=== PATIENT | male | born 1965 | race Caucasian/White ===

== ENCOUNTER 2021-08-18 15:07 | Inpatient (IN) ==
[2021-08-18] MEDS ORDERED: dilTIAZem HCl 5 MG/ML 5 ML VIAL IV ONE (15:24)
[2021-08-18] MEDS ORDERED: dilTIAZem HCl 5 MG/ML 5 ML VIAL IV STA (15:26)
[2021-08-18] MEDS ORDERED: STAT IV Infusion **Titration per Protocol STA (15:26)
[2021-08-18] MEDS ORDERED: SODIUM CHLORIDE 0.9% 1000ML 500 ML IV ONE (15:27)
--- NOTE | 2021-08-18 15:29 | Emergency Department Note ---
Impression & Plan Atrial fibrillation with rapid ventricular response, Palpitations ED Provider Note NAME: KATHIE [id number] KAITLIN AGE: 56 SEX: M : 1965 ARRIVES VIA: Ambulance INFORMANT: [Patient] ED PROVIDER(S): [Rodeirck Ojeda MD] CHIEF COMPLAINT: Cardiac assessment HISTORY OF PRESENT ILLNESS: The patient is a 56-year-old male states that about 2 and half hours ago, he noticed a fluttering in his chest. The patient was not short of breath, he was not having any chest pain. He went to get onto a stationary bicycle and his heart rate was in the 150s. He tried a second bike and the heart rate was the same. He had not even exercised. He was brought for evaluation. [facility] are guards at the bedside. The patient does not have any history of A. fib or a flutter or cardiac issues. He has never had a heart attack. He does carry history of depression. He states the only thing different recently was that he had a shingles vaccination earlier in the week. REVIEW OF SYSTEMS: See HPI for pertinent positives and negatives. A total of ten systems were reviewed and were otherwise negative. PMHx/PSHx: See Below SOCIAL HISTORY: See Below. PHYSICAL EXAM: GENERAL: Patient is in no acute distress. HEENT: No acute trauma, normocephalic atraumatic, mucous membranes moist, no nasal congestion, no scleral icterus. NECK: No stridor, no adenopathy, no meningismus, trachea is midline. LUNGS: Clear to auscultation bilaterally, no wheeze, no rhonchi, breath sounds equal. HEART: Tachycardic and irregular, no murmurs. ABDOMEN: Soft, nontender, bowel sounds positive, no peritonitis. EXTREMITIES: No cyanosis or edema, full range of motion of all the joints without pain or difficulty, no signs for acute trauma. NEUROLOGIC: Oriented x 3, no acute motor or sensory deficits, no focal weakness. SKIN: No rash, no jaundice, no diaphoresis. DIFFERENTIAL DIAGNOSIS: Cardiac ischemia, aortic dissection, pulmonary embolism, thyroid disorder, A. fib, a flutter, dysrhythmia, SVT, pneumothorax, pneumonia, pericarditis, myocarditis, esophageal rupture, GERD, cholecystitis, pancreatitis, muscu loskeletal, vaccine reaction, as well as other pathologies. EMERGENCY DEPARTMENT COURSE/PROCEDURES: ECG: Indication was tachycardia. The ECG shows atrial fibrillation with a rate of 155. LVH is present. There is some nonspecific ST change noted diffusely. There is no ST elevation, no PVCs. The QTc is 440. Continuous Cardiac Monitoring: An order was placed for continuous cardiac monitoring. The monitor shows a rate of 167 with atrial fibrillation. Critical Care Note: I have personally spent 41 minutes of critical care time in the direct management of this patient. This includes bedside care, interpre tation of diagnostic studies, and testing, discussion with consultants, patient, and family members, and other required patient management activities. This 41 minutes is in excess of all separately billable procedures. MEDICAL DECISION MAKING: There is no leukocytosis or concerning anemia. There is a normal platelet count. No renal failure or significant electrolyte abnormality. No concerning liver enzyme elevation. ECG shows a rapid atrial fibrillation without acute ischemia. Cardiac enzyme testing x1 is not consistent with acute cardiac injury. The patient appeared to be in a euthyroid state. Urinalysis did not show infection. Chest x-ray did not show pneumonia or CHF. COVID test returned negative. The patient presented in a rapid A. fib. He was aggressively managed. Patient was given a 15 mg bolus of IV diltiazem. He was then placed on a d iltiazem drip. The drip was titrated to help control the heart rate. He received IV saline, 500 cc. The patient's heart rate is better controlled, he is currently resting comfortably. The patient is in need of a hospital stay. He will require further cardiac work-up and further rate control. I did speak with the patient and family caseworker. The on-call hospitalist. Past Med/Surg History Medical History Anxiety Depression SIMONE on CPAP Social History Smoking Status: Former smoker Hx Alcohol Use: No Hx Substance Use: Yes (cocaine use in 1980s per patient report) Preferred Language: Kazakh Communication Ability: Effective Russian Teacher Required: No Beliefs That Will Affect Care: None Current Living Situation Comment: Prisoner Feels Safe at Home: Yes Safety Concerns: Feels Safe At This Time Allergies Allergies Allergy/AdvReac Type Severity Reaction Status Date / Time No Known Allergies Allergy Verified 08/18/21 20:11 Home Meds Home Medications Medication Instructions Recorded Confirmed buspirone 10 mg tablet 10 mg PO BID 08/18/21 08/18/21 buspirone 15 mg tablet 15 mg PO BID 08/18/21 08/18/21 capsaicin 0.075 % topical cream 1 applic TOPICAL BID 08/18/21 08/18/21 diclofenac sodium 50 mg 50 mg PO Q12H PRN 08/18/21 08/18/21 tablet,delayed release doxepin 75 mg capsule 75 mg PO HS 08/18/21 08/18/21 Results & Data (ED) Vital Signs Vital Signs - 24 hr 08/18/21 15:30 08/18/21 15:36 08/18/21 15:40 Temperature 36.6 C Temperature Source Oral Pulse Rate 149 H 161 H 106 H Pulse Rate from SpO2 Sensor 120 H 84 Respiratory Rate 13 21 10 L Respiratory Effort / Characteristics Non-Labored Spontaneous Respiratory Depth Normal Respiratory Pattern Regular Blood Pressure 140/100 Blood Pressure Mean 113 Blood Pressure Position Sitting Pulse Oximetry 96 99 99 Oxygen Delivery Method Room Air Room Air Room Air Sepsis Recent Fever Within 48 Hours No Sepsis New/Unexplained Change in Mental Status No Sepsis Action Taken by Nursing No Action Required 08/18/21 15:42 08/18/21 15:50 08/18/21 16:00 Temperature Temperature Source Pulse Rate 127 H 126 H Pulse Rate from SpO2 Sensor 101 H 96 H Respiratory Rate 15 14 Respiratory Effort / Characteristics Respiratory Depth Respiratory Pattern Blood Pressure 149/95 H Blood Pressure Mean 113 Blood Pressure Position Pulse Oximetry 98 99 Oxygen Delivery Method Room Air Room Air Room Air Sepsis Recent Fever Within 48 Hours Sepsis New/Unexplained Change in Mental Status Sepsis Action Taken by Nursing 08/18/21 16:10 08/18/21 16:15 08/18/21 16:20 Temperature Temperature Source Pulse Rate 106 H 127 H 140 H Pulse Rate from SpO2 Sensor 88 78 89 Respiratory Rate 9 L 17 13 Respiratory Effort / Characteristics Respiratory Depth Respiratory Pattern Blood Pressure 141/85 H Blood Pressure Mean 103 Blood Pressure Position Pulse Oximetry 98 99 96 Oxygen Delivery Method Room Air Room Air Room Air Sepsis Recent Fever Within 48 Hours Sepsis New/Unexplained Change in Mental Status Sepsis Action Taken by Nursing 08/18/21 16:30 08/18/21 16:40 08/18/21 16:45 Temperature Temperature Source Pulse Rate 115 H 126 H 101 H Pulse Rate from SpO2 Sensor 89 101 H 93 H Respiratory Rate 12 12 16 Respiratory Effort / Characteristics Respiratory Depth Respiratory Pattern Blood Pressure 142/94 H 155/114 H Blood Pressure Mean 110 127 Blood Pressure Position Pulse Oximetry 93 99 97 Oxygen Delivery Method Room Air Room Air Sepsis Recent Fever Within 48 Hours Sepsis New/Unexplained Change in Mental Status Sepsis Action Taken by Nursing 08/18/21 16:50 08/18/21 17:00 08/18/21 17:10 Temperature Temperature Source Pulse Rate 108 H 106 H 120 H Pulse Rate from SpO2 Sensor 74 84 78 Respiratory Rate 9 L 11 L 9 L Respiratory Effort / Characteristics Respiratory Depth Respiratory Pattern Blood Pressure Blood Pressure Mean Blood Pressure Position Pulse Oximetry 91 97 99 Oxygen Delivery Method Room Air Room Air Room Air Sepsis Recent Fever Within 48 Hours Sepsis New/Unexplained Change in Mental Status Sepsis Action Taken by Nursing 08/18/21 17:20 08/18/21 17:30 08/18/21 17:40 Temperature Temperature Source Pulse Rate 107 H 116 H 145 H Pulse Rate from SpO2 Sensor 80 79 88 Respiratory Rate 19 Respiratory Effort / Characteristics Respiratory Depth Respiratory Pattern Blood Pressure 155/94 H Blood Pressure Mean 114 Blood Pressure Position Pulse Oximetry 98 97 93 Oxygen Delivery Method Room Air Room Air Room Air Sepsis Recent Fever Within 48 Hours Sepsis New/Unexplained Change in Mental Status Sepsis Action Taken by Care Home Medications Current Medication List: was personally reviewed by me Laboratory Data Attestation: I reviewed the patient's lab results. Result diagrams: 08/18/21 15:25 08/18/21 15:25 Lab Results 08/18/21 08/18/21 08/18/21 Range/Units 14:05 15:25 15:25 WBC 7.83 (4.8-10.8) K/uL RBC 5.53 (4.7-6.1) M/uL Hgb 15.5 (14.0-18.0) g/dL Hct 45.8 (42-52) % MCV 82.8 (80-100) fL MCH 28.0 (25-34) pg MCHC 33.8 (32-36) g/dL RDW Std Deviation 40.8 (36.4-46.3) fL RDW Coeff of Kassidy 13.6 (11.5-14.5) % Plt Count 247 (130-400) K/uL MPV 11.0 H (7.4-10.4) fL Immature Gran % (Auto) 0.3 % Neut % (Auto) 59.6 % Lymph % (Auto) 30.8 % [place] % (Auto) 7.5 % Eos % (Auto) 1.5 % Baso % (Auto) 0.3 % Neut # (Auto) 4.67 (1.4-6.5) K/uL Lymph # (Auto) 2.41 (1.2-3.4) K/uL [place] # (Auto) 0.59 (0.11-0.59) K/uL Eos # (Auto) 0.12 (0-0.5) K/uL Baso # (Auto) 0.02 (0-0.2) K/uL Immature Gran # (Auto) 0.02 (0.00-0.02) K/uL Sodium 141 (136-145) mmol/L Potassium 4.2 (3.5-5.1) mmol/L Chloride 107 (98-107) mmol/L Carbon Dioxide 27 (21-32) mmol/L Anion Gap 7 (3-11) BUN 14 (6-23) mg/dl Creatinine 1.02 (0.6-1.4) mg/dl Est Cr Clr Drug Dosing 105.6 ml/min Est GFR ( Amer) 95.5 ml/min Est GFR (Non-Af Amer) 82.4 ml/min BUN/Creatinine Ratio 13.7 (10-20) Glucose 98 (70-99(Fasting)) mg/dl Calcium 9.4 (8.5-10.1) mg/dl Magnesium 2.2 (1.7-2.4) mg/dl Total Bilirubin 0.5 (0.2-1.0) mg/dl AST 18 (13-39) U/L ALT 18 (7-52) U/L Alkaline Phosphatase 69 (34-104) U/L Troponin I High Sens 4.5 (0-20) pg/ml Total Protein 7.5 (6.0-8.3) gm/dl Albumin 4.5 (3.4-5.0) gm/dl Globulin 3.0 (2.5-4.0) gm/dl Albumin/Globulin Ratio 1.5 (0.9-2) TSH (0.300-4.500) uIu/ml SARS-CoV-2, RNA, NAAT NEGATIVE (NEGATIVE) 08/18/21 Range/Units 15:25 WBC (4.8-10.8) K/uL RBC (4.7-6.1) M/uL Hgb (14.0-18.0) g/dL Hct (42-52) % MCV (80-100) fL MCH (25-34) pg MCHC (32-36) g/dL RDW Std Deviation (36.4-46.3) fL RDW Coeff of Kassidy (11.5-14.5) % Plt Count (130-400) K/uL MPV (7.4-10.4) fL Immature Gran % (Auto) % Neut % (Auto) % Lymph % (Auto) % [place] % (Auto) % Eos % (Auto) % Baso % (Auto) % Neut # (Auto) (1.4-6.5) K/uL Lymph # (Auto) (1.2-3.4) K/uL [place] # (Auto) (0.11-0.59) K/uL Eos # (Auto) (0-0.5) K/uL Baso # (Auto) (0-0.2) K/uL Immature Gran # (Auto) (0.00-0.02) K/uL Sodium (136-145) mmol/L Potassium (3.5-5.1) mmol/L Chloride (98-107) mmol/L Carbon Dioxide (21-32) mmol/L Anion Gap (3-11) BUN (6-23) mg/dl Creatinine (0.6-1.4) mg/dl Est Cr Clr Drug Dosing ml/min Est GFR ( Amer) ml/min Est GFR (Non-Af Amer) ml/min BUN/Creatinine Ratio (10-20) Glucose (70-99(Fasting)) mg/dl Calcium (8.5-10.1) mg/dl Magnesium (1.7-2.4) mg/dl Total Bilirubin (0.2-1.0) mg/dl AST (13-39) U/L ALT (7-52) U/L Alkaline Phosphatase (34-104) U/L Troponin I High Sens (0-20) pg/ml Total Protein (6.0-8.3) gm/dl Albumin (3.4-5.0) gm/dl Globulin (2.5-4.0) gm/dl Albumin/Globulin Ratio (0.9-2) TSH 1.637 (0.300-4.500) uIu/ml SARS-CoV-2, RNA, NAAT (NEGATIVE) Administered Medications Buspirone HCl (Buspirone 5 Mg Tab) 25 mg PO BID [facility] Stop: 09/17/21 20:59 Last Admin: 08/18/21 21:27 Dose: 25 mg Documented by: [id number] Doxepin HCl (Doxepin Hcl 75 Mg Capsule) 75 mg PO HS [facility] Stop: 09/17/21 20:59 Last Admin: 08/18/21 21:30 Dose: 75 mg Documented by: [id number] Diltiazem HCl 125 mg/ Dextrose 125 mls @ 15 mls/hr IV .Q8H20M [facility]; Protocol Stop: 09/17/21 15:29 Last Titration: 08/18/21 22:34 Dose: 5 mg/hr, 5 mls/hr Documented by: [id number] Cosigned by: [id number] Titration: 08/18/21 22:19 Dose: 10 mg/hr, 10 mls/hr Documented by: [id number] Cosigned by: [id number] Titration: 08/18/21 18:05 Dose: 15 mg/hr, 15 mls/hr Documented by: [id number] Cosigned by: [id number] Titration: 08/18/21 16:55 Dose: 10 mg/hr, 10 mls/hr Documented by: [id number] Cosigned by: [id number] Admin: 08/18/21 16:06 Dose: 5 mg/hr, 5 mls/hr Documented by: [id number] Cosigned by: [id number] Metoprolol Tartrate (Metoprolol Tartrate 25 Mg Tab) 12.5 mg PO BID [facility] Stop: 09/17/21 20:59 Last Admin: 08/18/21 21:28 Dose: 12.5 mg Documented by: [id number] Discontinued Medications Diltiazem HCl (Diltiazem Hcl 5 Mg/Ml 5 Ml Vial) Confirm Administered Dose 25 mg IV .STK-MED ONE Stop: 08/18/21 15:25 Last Admin: 08/18/21 15:32 Dose: Not Given Documented by: [id number] Diltiazem HCl (Diltiazem Hcl 5 Mg/Ml 5 Ml Vial) 15 mg IV NOW STA Stop: 08/18/21 15:27 Last Admin: 08/18/21 15:32 Dose: 15 mg Documented by: [id number] Cosigned by: [id number] Sodium Chloride (Nss 1000ml) 500 mls @ 999 mls/hr IV .Q31M ONE Stop: 08/18/21 15:57 Last Infusion: 08/18/21 16:26 Dose: 0 mls/hr Documented by: [id number] Admin: 08/18/21 15:32 Dose: 999 mls/hr Documented by: [id number] Miscellaneous (Stat Iv Infusion Titration Per Protocol) 1 ea N/A NOW STA Stop: 08/18/21 15:27 Last Admin: 08/18/21 15:32 Dose: 1 ea Documented by: [id number] Miscellaneous Information (Patient's Allergy Info Needs Entered) 1 ea N/A Q30M IMANI Stop: 09/17/21 19:44 Last Admin: 08/18/21 20:08 Dose: 1 ea Documented by: [id number] Imaging Data Radiologist's Impression: Chest X-Ray 08/18/21 15:27 XR chest 1V portable CLINICAL HISTORY: weakness COMPARISON STUDY: No previous studies for comparison. FINDINGS: Lung volumes are normal. Lungs are clear. There is no pneumothorax or pleural effusion. Cardiac size is normal. Mediastinal contours are normal. There is no evidence for pulmonary edema. There may be an old lateral left ninth rib fracture. IMPRESSION: No acute cardiopulmonary findings. ACT 112: Negative or not required by law. Electronically signed by: Joshua Valdez M.D. 08/18/2021 3:53 PM Discharge Plan Visit Data Chief Complaint: Cardiac Assessment Stated Complaint: A Fib ED Provider: Roderick Ojeda Discharge Problem: Atrial fibrillation with rapid ventricular response, Palpitations Patient Disposition: Admitted As Inpatient Condition: Good Discharge Instructions Interventions: ED Discharge Assessment Last Done: 08/18/21 18:26
[2021-08-18] MEDS ORDERED: dilTIAZem HCL 125 MG in DEXTROSE 5% 100 ML IV SCH (15:30)
[2021-08-18 15:53] LABS: Basophils # (auto) 0.02 K/uL (0-0.2); Basophils % (auto) 0.3 %; Eosinophils # (auto) 0.12 K/uL (0-0.5); Eosinophils % (auto) 1.5 %; Hematocrit (blood only) 45.8 % (42-52); Hemoglobin 15.5 g/dL (14.0-18.0); Immature Granulocytes # (auto) 0.02 K/uL (0.00-0.02); Immature Granulocytes % (auto) 0.3 %; Lymphocytes # (auto) 2.41 K/uL (1.2-3.4); Lymphocytes % (auto) 30.8 %; Mean Corpuscular Hgb Conc 33.8 g/dL (32-36); Mean Corpuscular Volume 82.8 fL (80-100); Monocytes # (auto) 0.59 K/uL (0.11-0.59); Monocytes % (auto) 7.5 %; Neutrophils # (auto) 4.67 K/uL (1.4-6.5); Neutrophils % (auto) 59.6 %; Platelet Count 247 K/uL (130-400); RDW Coefficient of Variation 13.6 % (11.5-14.5); RDW Standard Deviation 40.8 fL (36.4-46.3); Red Blood Count 5.53 M/uL (4.7-6.1); White Blood Count 7.83 K/uL (4.8-10.8)
--- NOTE | 2021-08-18 15:54 | XRay Report ---
XR chest 1V portable CLINICAL HISTORY: weakness COMPARISON STUDY: No previous studies for comparison. FINDINGS: Lung volumes are normal. Lungs are clear. There is no pneumothorax or pleural effusion. Car diac size is normal. Mediastinal contours are normal. There is no evidence for pulmonary edema. There may be an old lateral left ninth rib fracture. IMPRESSION: No acute cardiopulmonary findings. ACT 112: Negative or not required by law. Electronically signed by: Joshua Valdez M.D. 08/18/2021 3:53 PM
--- NOTE | 2021-08-18 16:06 | Electrocardiogram Report ---
Test Reason : Blood Pressure : / mmHG Vent. Rate : 155 BPM Atrial Rate : 197 BPM P-R Int : 000 ms QRS Dur : 082 ms QT Int : 274 ms P-R-T Axes : 000 -22 062 degrees QTc Int : 440 ms Poor data quality, interpretation may be adversely affected Probable Atrial fibrillation with rapid ventricular response Minimal voltage criteria for LVH, may be normal variant Nonspecific ST abnormality Abnormal ECG No previous ECGs available Confirmed by Rafal Jensen ([id number]) on 08/18/2021 4:05:48 PM Referred By: Confirmed By:Rafal Jensen
[2021-08-18 16:28] LABS: Albumin Globulin Ratio 1.5 (0.9-2); Albumin Level 4.5 gm/dl (3.4-5.0); BUN Creatinine Ratio 13.7 (10-20); Bilirubin,Total 0.5 mg/dl (0.2-1.0); Calcium 9.4 mg/dl (8.5-10.1); Creatinine Clr Calc Pharmacy 105.6 ml/min; Est GFR (African American) 95.5 ml/min; Est GFR (Non-African American) 82.4 ml/min; Magnesium 2.2 mg/dl (1.7-2.4); Potassium 4.2 mmol/L (3.5-5.1); Total Protein 7.5 gm/dl (6.0-8.3)
[2021-08-18 16:30] LABS: Troponin I High Sensitivity 4.5 pg/ml (0-20)
--- NOTE | 2021-08-18 17:17 | History & Physical Report ---
Date of Service August 18, 2021 Assessment & Plan (1) Atrial fibrillation with RVR: Plan: - No history of A. fib or other arrhythmia, with patient's first symptoms (palpitations) this afternoon. - Unknown cause. Past medical history significant for SIMONE, otherwise no pul monary or cardiac disease. TSH limits. No electrolyte abnormalities. No evidence of infection. No new medications or [id number] supplements. - [id number] score: 0. Patient denies a history of GI or intracranial bleeds, or known coagulopathies. Given very low CVA risk (< 0.2% per year) will hold off on anticoagulation for tonight and defer decision to cardiology. - Diltiazem drip with bolus started in ED, with heart rate down to 90-120s upon my visit. Will continue this, also add on metoprolol 12.5 mg twice daily, first dose this evening. - Echo ordered. - Cardiology consult placed. (2) Depression: Plan: - Continue doxepin 75 mg at night. (3) Anxiety: Plan: - Continue BuSpar 25 mg twice daily. (4) SIMONE on CPAP: Plan: - Continue CPAP at night. (5) Knee pain: Plan: - Chronic. - Continue Voltaren 50 mg twice daily as needed, as well as capsaicin cream 3 times daily as needed. Plan: - Admit to PCU. - SCDs for VTE ppx. - Full code. History of Present Illness Chief Complaint: increased heart rate, palpitations this afternoon Primary Care Provider: ROSALIE Davenport Joni Armendariz is a 56-year-old male with a past medical history significant for depression and anxiety, as well as sleep apnea who presents today with increased heart rate. Patient has been in his normal state of health, without complaints until this afternoon. He was laying on his left side in bed and felt a temporary heart flutter. He rolled onto this other side and this resolved and he remained asymptomatic. Then around 1:30 this afternoon, he attended a cardio class [facility] the [facility], before starting exercise the exercise bike was reading his heart rate of 150. Thinking this was an error, he got on another bike which gave him the same reading. Due to this, he is presenting today for further evaluation. Patient has not had any fever/chills lately shortness of breath, cough, chest pain, chest tightness, or palpitations in the line experienced very briefly early this afternoon In ED, initially presented with a heart rate in the 150s, was found to be in A. fib. Hypertensive with SBP 140s, otherwise vital signs within normal limits. Labs unremarkable. CXR unremarkable. Allergies Allergy/AdvReac Type Severity Reaction Status Date / Time No Known Allergies Allergy Verified 08/18/21 20:11 Home Medications Medication Instructions Recorded Confirmed Type buspirone 10 mg tablet 10 mg PO BID 08/18/21 08/18/21 History buspirone 15 mg tablet 15 mg PO BID 08/18/21 08/18/21 History capsaicin 0.075 % topical cream 1 applic TOPICAL BID 08/18/21 08/18/21 History diclofenac sodium 50 mg 50 mg PO Q12H PRN 08/18/21 08/18/21 History tablet,delayed release doxepin 75 mg capsule 75 mg PO HS 08/18/21 08/18/21 History Past Med/Surg History Medical History Anxiety Depression SIMONE on CPAP Social History Smoking Status: Former smoker Hx Alcohol Use: No Hx Substance Use: Yes (cocaine use in 1980s per patient report) Preferred Language: Peruvian Communication Ability: Effective Card Lacer Jacquard Required: No Beliefs That Will Affect Care: None Current Living Situation Comment: Prisoner Feels Safe at Home: Yes Safety Concerns: Feels Safe At This Time Review of Systems Review of Systems: Constitutional: No fever/chills, weakness, fatigue, myalgias, anorexia, night sweats Eyes: No diplopia, no worsening or blurred vision ENT: normal hearing, no trouble swallowing Respiratory: No cough, sputum, dyspnea at rest or on exertion Cardiovascular: No chest pain, tightness or palpitations Abdomen: No pain, nausea, vomiting, diarrhea or constipation : Denies dysuria, hematuria, increased urgency/frequency, urinary retention Musculoskeletal: No joint pain, calf pain, swelling Neurologic: No weakness, numbness/tingling, or balance problems Psychiatric: No anxiety or depression Skin: No rash or itch Physical Exam Physical Exam: General: awake, alert, no apparent distress Head: Normocephalic, atraumatic ENT: PERRL, EOMI, no pharyngeal exudate, mucous membranes moist Chest: Clear to auscultation, on room air, no adventitious breath sounds Cardiac: irregular rate and rhythm consistent with a fib;, no murmur, no JVD, normal peripheral pulses, good capillary refill Abdominal: NABS x 4 quadrants, soft, nontender to palpation, no rebound, guarding or tenderness Extremities: Normal inspection, no peripheral edema or erythema, calfs nontender to palpation Psych: Normal mood and affect Neuro: AAO x 3, strength intact bilaterally and rated 5/5, no motor deficits, speech is clear, no peripheral sensory deficits Skin: no rash or erythema Results & Data Results & Data ([facility]) Vital Signs (Past 12 Hours) Vital Signs Temp Pulse Resp BP Pulse Ox 08/18/21 16:50 108 H 9 L 91 08/18/21 16:45 101 H 16 155/114 H 97 08/18/21 16:40 126 H 12 99 08/18/21 16:30 115 H 12 142/94 H 93 08/18/21 16:20 140 H 13 96 08/18/21 16:15 127 H 17 141/85 H 99 08/18/21 16:10 106 H 9 L 98 08/18/21 16:00 126 H 14 149/95 H 99 08/18/21 15:50 127 H 15 98 08/18/21 15:40 106 H 10 L 99 08/18/21 15:36 36.6 C 161 H 21 140/100 99 08/18/21 15:30 149 H 13 96 Laboratory Results Abnormal lab results 08/18/21 Range/Units 15:25 MPV 11.0 H (7.4-10.4) fL Diagnostic Findings Chest X-Ray 08/18/21 15:27 XR chest 1V portable CLINICAL HISTORY: weakness COMPARISON STUDY: No previous studies for comparison. FINDINGS: Lung volumes are normal. Lungs are clear. There is no pneumothorax or pleural effusion. Cardiac size is normal. Mediastinal contours are normal. There is no evidence for pulmonary edema. There may be an old lateral left ninth rib fracture. IMPRESSION: No acute cardiopulmonary findings. ACT 112: Negative or not required by law. Electronically signed by: Joshua Valdez M.D. 08/18/2021 3:53 PM ECG Additional Comments: Probable Atrial fibrillation with rapid ventricular response Minimal voltage criteria for LVH, may be normal variant Nonspecific ST abnormality Abnormal ECG No previous ECGs available. Code Status & VTE Plan Code Status Full code. Supervising Physician Co-Signing Physician Notes I supervised Thuy Fonseca PA-C on the care of this patient. I interviewed and examined the patient independently of her. The plan is as written in her note except for any following changes/exceptions: None Patient with some mildly symptomatic atrial fibrillation, found he was in afib with RVR when sitting down on an exercise bike in [facility] when his HR was in the 150 range. He went to the [facility], then was sent here. In the ER, a diltiazem drip brought the HR from 170 -> 100 range. Will admit for rate control. CHADS-VASc is 0, so no anticoagulation needed at this time. Echo ordered. PG Care Time/CCT Total # of Minutes Spent Total Time Spent with Patient: Total time spent is greater than 50% in coordination of care (as documented) at patient's floor/unit and/or counseling patient: Coding Level of Care Code 28784 Initial Inpt Care Lvl 2 Diagnoses Atrial fibrillation with RVR I48.91 Depression F32.A Anxiety F41.9 SIMONE on CPAP G47.33; Z99.89 Knee pain M25.569
[2021-08-18] MEDS ORDERED: POLYETHYLENE (MIRALAX) 17 GM PACK PO PRN (19:03)
[2021-08-18] MEDS ORDERED: ACETAMINOPHEN 325 MG TAB PO PRN (19:03)
[2021-08-18] MEDS ORDERED: DICLOFENAC SODIUM 25 MG TABDR PO PRN (19:03)
[2021-08-18] MEDS ORDERED: ONDANSETRON INJ 2 MG/ML 2 ML VIAL IV PRN (19:03)
[2021-08-18] MEDS ORDERED: CAPSAICIN CR 0.075% 60 GM TUBE EXT PRN (19:03)
[2021-08-18] MEDS ORDERED: Patient's ALLERGY Info needs ENTERED SCH (19:45)
[2021-08-18 21:01] LABS: Appearance Urine Clear (Clear); Bilirubin Urine Negative (Negative); Blood Urine Negative (Negative); Color Urine Yellow; Glucose Urine UA Negative (Negative); Ketones Urine Negative (Negative); Leukocyte Esterase Urine Negative (Negative); Nitrite Urine Negative (Negative); Protein Urine Negative (Negative); Urobilinogen Urine Negative (Negative)
[2021-08-18] MEDS: busPIRone 5 MG TAB PO SCH (21:27)
[2021-08-18] MEDS: METOPROLOL TARTRATE 25 MG TAB PO SCH (21:28)
[2021-08-18] MEDS: DOXEPIN HCL 75 MG CAPSULE PO SCH (21:30)
--- NOTE | 2021-08-19 03:43 | Communication Note ---
Date of Service: August 19, 2021 Was on dilt drip for new onset afib rvr. HR dropped to 60s, w/ low of 40s. Drip paused by nursing. asymptomatic. I have placed a hold on the drip order.
[2021-08-19 07:40] LABS: Basophils # (auto) 0.03 K/uL (0-0.2); Basophils % (auto) 0.4 %; Eosinophils # (auto) 0.11 K/uL (0-0.5); Eosinophils % (auto) 1.3 %; Hematocrit (blood only) 46.7 % (42-52); Hemoglobin 15.6 g/dL (14.0-18.0); Immature Granulocytes # (auto) 0.02 K/uL (0.00-0.02); Immature Granulocytes % (auto) 0.2 %; Lymphocytes # (auto) 2.59 K/uL (1.2-3.4); Lymphocytes % (auto) 30.3 %; Mean Corpuscular Hgb Conc 33.4 g/dL (32-36); Mean Corpuscular Volume 83.7 fL (80-100); Monocytes # (auto) 0.66 K/uL (0.11-0.59); Monocytes % (auto) 7.7 %; Neutrophils # (auto) 5.14 K/uL (1.4-6.5); Neutrophils % (auto) 60.1 %; Platelet Count 234 K/uL (130-400); RDW Coefficient of Variation 13.7 % (11.5-14.5); RDW Standard Deviation 41.8 fL (36.4-46.3); Red Blood Count 5.58 M/uL (4.7-6.1); White Blood Count 8.55 K/uL (4.8-10.8)
[2021-08-19 08:05] LABS: BUN Creatinine Ratio 14.8 (10-20); Creatinine Clr Calc Pharmacy 121.6 ml/min; Est GFR (African American) 112.1 ml/min; Est GFR (Non-African American) 96.7 ml/min; Magnesium 2.2 mg/dl (1.7-2.4)
[2021-08-19] MEDS: METOPROLOL TARTRATE 25 MG TAB PO SCH (08:51)
[2021-08-19] MEDS: busPIRone 5 MG TAB PO SCH ×2 (08:51→20:43)
--- NOTE | 2021-08-19 09:23 | Cardiology Consultation ---
Date of Consultation August 19, 2021 Assessment & Plan (1) Atrial fibrillation with rapid ventricular response: 1. Atrial fibrillation: He presented in atrial fibrillation, he has never noticed this rhythm before and it lasted for less than 24 hours based on symptoms. The heart rate was fast enough that I would send him home on something for rate control, he is currently on metoprolol but I would recommend diltiazem. I am going to order diltiazem 180 mg daily but we will not give a dose today since he is in sinus rhythm and he received beta-blockers. I do not believe he should be on anticoagulation given the short duration of the arrhythmia as well as his low [id number]-CGDy score. I would not recommend any further testing at this time. History of Present Illness Reason for Consultation: Atrial fibrillation with a rapid ventricular response Attending Physician: Valentín Green MD History of Present Illness This is a 56-year-old incarcerated male who is unknown to our service and presented to the [facility] emergency room on the afternoon of August 18, 2021 with about 2-1/2 hours of fluttering in his chest. He did not have other cardiac symptoms. He noted on his stationary bicycle heart rate monitor that his heart rate was in the 150 bpm range. He was therefore brought to the emergency room. He has no other known cardiac history. He does have a history of obstructive sleep apnea as well as depression and anxiety. Evaluation included an electrocardiogram on presentation where atrial fi brillation with a heart rate of 155 bpm was identified as well as probable left ventricular hypertrophy with repolarization abnormalities. His blood pressure was mildly elevated. He was treated with intravenous diltiazem as well as oral metoprolol with improvement in his heart rate. Laboratory studies were essentially unremarkable including troponin and TSH. Without counting hypertension (which was present on presentation but resolved and is probably not a chronic issue) his [id number]-[id number] score is 0. He was therefore not started on anticoagulation. At around 919 this morning he converted from atrial fibrillation to sinus rhythm. At the time of my evaluation he was in sinus rhythm, he had minimal sensation of palpitations overnight and has not felt any this morning. He has had no lightheadedness or dizziness. He has been up to the bathroom without difficulty. Allergies Allergy/AdvReac Type Severity Reaction Status Date / Time No Known Allergies Allergy Verified 08/18/21 20:11 Home Medications Medication Instructions Recorded Confirmed Type buspirone 10 mg tablet 10 mg PO BID 08/18/21 08/18/21 History buspirone 15 mg tablet 15 mg PO BID 08/18/21 08/18/21 History capsaicin 0.075 % topical cream 1 applic TOPICAL BID 08/18/21 08/18/21 History diclofenac sodium 50 mg 50 mg PO Q12H PRN 08/18/21 08/18/21 History tablet,delayed release doxepin 75 mg capsule 75 mg PO HS 08/18/21 08/18/21 History Patient History Medical History Anxiety Depression SIMONE on CPAP Social History Smoking Status: Former smoker Hx Alcohol Use: No Hx Substance Use: Yes (cocaine use in 1980s per patient report) Preferred Language: German Communication Ability: Effective Cosmetic Account Coordinator Required: No Beliefs That Will Affect Care: None Current Living Situation Comment: Prisoner Feels Safe at Home: Yes Safety Concerns: Feels Safe At This Time Review of Systems Review of Systems: All systems reviewed & are unremarkable except as noted in HPI & below Physical Exam Physical Exam: Constitutional: Alert, cooperative and in no distress. HEENT: Unremarkable Neck: No jugular venous distention, carotid pulses are normal and equal bi laterally without bruits. Pulmonary: Clear to auscultation bilaterally. Cardiac: Regular rhythm with no murmur, gallop or rub. Abdomen: Soft, nontender with normal bowel sounds. Extremities: No edema. Distal pulses intact. Neurologic: No focal findings. Gait is steady. Skin: No rash, ecchymoses or petechiae. Results & Data ([facility]) Vital Signs (Past 12 Hours) Vital Signs Temp Pulse Pulse Pulse Resp BP Pulse Ox 08/19/21 07:41 36.7 C 94 H 18 113/79 99 08/19/21 04:17 36.4 C L 78 18 116/77 98 08/18/21 23:26 36.8 C 63 18 133/74 95 08/18/21 22:20 64 118/67 08/18/21 22:15 65 08/18/21 21:26 74 119/75 Laboratory Results Cardiac Enzymes 08/18/21 Range/Units 15:25 AST 18 (13-39) U/L Troponin I High Sens 4.5 (0-20) pg/ml CBC 08/18/21 08/19/21 Range/Units 15:25 06:53 WBC 7.83 8.55 (4.8-10.8) K/uL RBC 5.53 5.58 (4.7-6.1) M/uL Hgb 15.5 15.6 (14.0-18.0) g/dL Hct 45.8 46.7 (42-52) % Plt Count 247 234 (130-400) K/uL Neut # (Auto) 4.67 5.14 (1.4-6.5) K/uL Lymph # (Auto) 2.41 2.59 (1.2-3.4) K/uL [place] # (Auto) 0.59 0.66 H (0.11-0.59) K/uL Eos # (Auto) 0.12 0.11 (0-0.5) K/uL Baso # (Auto) 0.02 0.03 (0-0.2) K/uL Comprehensive Metabolic Panel 08/18/21 08/19/21 Range/Units 15:25 06:53 Sodium 141 138 (136-145) mmol/L Potassium 4.2 4.0 (3.5-5.1) mmol/L Chloride 107 107 (98-107) mmol/L Carbon Dioxide 27 25 (21-32) mmol/L BUN 14 13 (6-23) mg/dl Creatinine 1.02 0.88 (0.6-1.4) mg/dl Glucose 98 85 (70-99(Fasting)) mg/dl Calcium 9.4 9.0 (8.5-10.1) mg/dl AST 18 (13-39) U/L ALT 18 (7-52) U/L Alkaline Phosphatase 69 (34-104) U/L Total Protein 7.5 (6.0-8.3) gm/dl Albumin 4.5 (3.4-5.0) gm/dl Intake and Output 08/18/21 08/19/21 08/19/21 22:59 06:59 14:59 Intake Total 703.333 / 703.333 Balance 703.333 / 703.333 Intake: IV 583.333 / 583.333 Sodium Chloride 0.9% 1000ML 500 500 / 500 ml @ 999 mls/hr IV .Q31M ONE Rx#:[id number] dilTIAZem HCL 125 mg In 83.333 / 83.333 Dextrose 5% 100 ml @ 15 MG/HR 15 mls/hr IV .Q8H20M [facility] Rx#: [id number] Oral 120 / 120 Other: # Unmeasured Voids 1 Weight 111.3 kg 106.7 kg Weight Measurement Method Built in [employer] Built in [facility] Diagnostic Findings EssentiallyTelemetry: Atrial fibrillation until 918 this morning when he con verted to sinus rhythm. When he came in his heart rate was rapid, overnight it was well controlled during atrial fibrillation this morning increased to an average of about 100 before converting. Echocardiogram: I reviewed his echocardiogram, it has not been officially read as yet. It looks essentially normal. PG Care Time/CCT Total # of Minutes Spent Total Time Spent with Patient: Total time spent is greater than 50% in coordination of care (as documented) at patient's floor/unit and/or counseling patient: Coding Level of Care Code 34097 Inpt Consult Level 4 Diagnoses Atrial fibrillation with rapid ventricular response I48.91
--- NOTE | 2021-08-19 13:19 | Hospitalist Progress Note ---
Date of Service August 19, 2021 Assessment & Plan (1) Atrial fibrillation with RVR: Plan: - No history of A. fib or other arrhythmia. Presented to ER with HR of 155 BPM. - Unknown cause. Past medical history significant for SIMONE, otherwise no pulmonary or cardiac disease. TSH WNL. No electrolyte abnormalities. No evidence of infection. No new medications or oyms-evb-fwrnwea supplements. - [id number]-[id number] score: 0. Patient denies a history of GI or intracranial bleeds, or known coagulopathies. Given very low CVA risk (< 0.2% per year) will hold anticoagulation. - Diltiazem drip is currently on hold. - Discontinued PO Metoprolol, plan to start Diltiazem 180 mg qAM on 08/20/21. - Echo pending completion. - Cardiology following, greatly appreciate their input. (2) Depression: Plan: - Continue doxepin 75 mg at night. (3) Anxiety: Plan: - Continue Buspar 25 mg twice daily. (4) SIMONE on CPAP: Plan: - Continue CPAP at night. (5) Knee pain: Plan: - Chronic. - Continue Voltaren 50 mg twice daily as needed, as well as capsaicin cream 3 times daily as needed. Plan: DVT ppx: SCDs, encourage ambulation. Dispo: PCU for cardiac monitoring; will continue cardiac sonographer for an additional 24 hours, can be discharged to fdc on 08/20 if HR remains stable. Admission and Anticipated Discharge Date Admission Date: August 18, 2021 Supervising Physician Co-Signing Physician Notes Attending Attestation - Chart reviewed, care plan d/w EVELIO Nowak. I agree w/ the mercado components of her documentation. Zaid Abad MD Subjective Mr. Armendariz is doing well, converted to sinus rhythm this morning. Diltiazem drip was discontinued last night due to bradycardia. He denies palpitations, chest pain, SOB. Review of Systems Review of Systems: Eyes: Negative for event change of vision ENT: Negative for epistaxis, nasal discharge, sore throat, or deafness Cardiovascular: Negative for anginal type chest pain, palpitations, dizziness, diaphoresis Respiratory: Negative for new shortness of breath,hemoptysis, or purulent cough Gastrointestinal: Negative for diarrhea, hematemesis, melena, nausea, vomiting, or dyspepsia Integumentary (skin): Negative for rash or jaundice discoloration Genitourinary: Negative for urinary frequency, hematuria, or dysuria Neurological: Negative for weakness, seizure activity, headache, or dizziness Lymphatic/Hematologic: Negative for petechiae, bleeding or new adenopathy Musculoskeletal: Negative for new joint or back pain Allergic/Immunologic: Negative for unusual rash or pruritis Physical Exam Physical Exam: Constitutional: Vitals are stable Respiratory: Lung sounds were generally clear bilaterally. Cardiovascular: Heart was RRR without significant murmur, gallops or rubs. Musculoskeletal System: The musculoskeletal system seemed concordant with age. Skin: The skin was negative for jaundice. Extremities: Negative for edema or erythema Results & Data Results & Data ([facility]) Vital Signs (Past 12 Hours) Vital Signs Temp Pulse Pulse Resp BP Pulse Ox 08/19/21 11:39 36.5 C 68 19 98/66 L 97 08/19/21 09:26 88 08/19/21 07:41 36.7 C 94 H 18 113/79 99 08/19/21 04:17 36.4 C L 78 18 116/77 98 Laboratory Results 08/19/21 08/19/21 08/18/21 Range/Units 06:53 06:53 18:43 WBC 8.55 (4.8-10.8) K/uL RBC 5.58 (4.7-6.1) M/uL Hgb 15.6 (14.0-18.0) g/dL Hct 46.7 (42-52) % MCV 83.7 (80-100) fL MCH 28.0 (25-34) pg MCHC 33.4 (32-36) g/dL RDW Std Deviation 41.8 (36.4-46.3) fL RDW Coeff of Kass[place] 13.7 (11.5-14.5) % Plt Count 234 (130-400) K/uL MPV 11.0 H (7.4-10.4) fL Immature Gran % (Auto) 0.2 % Neut % (Auto) 60.1 % Lymph % (Auto) 30.3 % [place] % (Auto) 7.7 % Eos % (Auto) 1.3 % Baso % (Auto) 0.4 % Neut # (Auto) 5.14 (1.4-6.5) K/uL Lymph # (Auto) 2.59 (1.2-3.4) K/uL [place] # (Auto) 0.66 H (0.11-0.59) K/uL Eos # (Auto) 0.11 (0-0.5) K/uL Baso # (Auto) 0.03 (0-0.2) K/uL Immature Gran # (Auto) 0.02 (0.00-0.02) K/uL Sodium 138 (136-145) mmol/L Potassium 4.0 (3.5-5.1) mmol/L Chloride 107 (98-107) mmol/L Carbon Dioxide 25 (21-32) mmol/L Anion Gap 6 (3-11) BUN 13 (6-23) mg/dl Creatinine 0.88 (0.6-1.4) mg/dl Est Cr Clr Drug Dosing 121.6 ml/min Est GFR ( Amer) 112.1 ml/min Est GFR (Non-Af Amer) 96.7 ml/min BUN/Creatinine Ratio 14.8 (10-20) Glucose 85 (70-99(Fasting)) mg/dl Calcium 9.0 (8.5-10.1) mg/dl Magnesium 2.2 (1.7-2.4) mg/dl Total Bilirubin (0.2-1.0) mg/dl AST (13-39) U/L ALT (7-52) U/L Alkaline Phosphatase (34-104) U/L Troponin I High Sens (0-20) pg/ml Total Protein (6.0-8.3) gm/dl Albumin (3.4-5.0) gm/dl Globulin (2.5-4.0) gm/dl Albumin/Globulin Ratio (0.9-2) TSH (0.300-4.500) uIu/ml Urine Color Yellow Urine Appearance Clear (Clear) Urine pH 7.0 (4.5-7.5) Ur Specific [place] 1.010 (1.000-1.030) Urine Protein Negative (Negative) Urine Glucose (UA) Negative (Negative) Urine Ketones Negative (Negative) Urine Blood Negative (Negative) Urine Nitrite Negative (Negative) Urine Bilirubin Negative (Negative) Urine Urobilinogen Negative (Negative) Ur Leukocyte Esterase Negative (Negative) SARS-CoV-2, RNA, NAAT (NEGATIVE) 08/18/21 08/18/21 08/18/21 Range/Units 15:25 15:25 15:25 WBC 7.83 (4.8-10.8) K/uL RBC 5.53 (4.7-6.1) M/uL Hgb 15.5 (14.0-18.0) g/dL Hct 45.8 (42-52) % MCV 82.8 (80-100) fL MCH 28.0 (25-34) pg MCHC 33.8 (32-36) g/dL RDW Std Deviation 40.8 (36.4-46.3) fL RDW Coeff of Kassidy 13.6 (11.5-14.5) % Plt Count 247 (130-400) K/uL MPV 11.0 H (7.4-10.4) fL Immature Gran % (Auto) 0.3 % Neut % (Auto) 59.6 % Lymph % (Auto) 30.8 % [place] % (Auto) 7.5 % Eos % (Auto) 1.5 % Baso % (Auto) 0.3 % Neut # (Auto) 4.67 (1.4-6.5) K/uL Lymph # (Auto) 2.41 (1.2-3.4) K/uL [place] # (Auto) 0.59 (0.11-0.59) K/uL Eos # (Auto) 0.12 (0-0.5) K/uL Baso # (Auto) 0.02 (0-0.2) K/uL Immature Gran # (Auto) 0.02 (0.00-0.02) K/uL Sodium 141 (136-145) mmol/L Potassium 4.2 (3.5-5.1) mmol/L Chloride 107 (98-107) mmol/L Carbon Dioxide 27 (21-32) mmol/L Anion Gap 7 (3-11) BUN 14 (6-23) mg/dl Creatinine 1.02 (0.6-1.4) mg/dl Est Cr Clr Drug Dosing 105.6 ml/min Est GFR ( Amer) 95.5 ml/min Est GFR (Non-Af Amer) 82.4 ml/min BUN/Creatinine Ratio 13.7 (10-20) Glucose 98 (70-99(Fasting)) mg/dl Calcium 9.4 (8.5-10.1) mg/dl Magnesium 2.2 (1.7-2.4) mg/dl Total Bilirubin 0.5 (0.2-1.0) mg/dl AST 18 (13-39) U/L ALT 18 (7-52) U/L Alkaline Phosphatase 69 (34-104) U/L Troponin I High Sens 4.5 (0-20) pg/ml Total Protein 7.5 (6.0-8.3) gm/dl Albumin 4.5 (3.4-5.0) gm/dl Globulin 3.0 (2.5-4.0) gm/dl Albumin/Globulin Ratio 1.5 (0.9-2) TSH 1.637 (0.300-4.500) uIu/ml Urine Color Urine Appearance (Clear) Urine pH (4.5-7.5) Ur Specific [place] (1.000-1.030) Urine Protein (Negative) Urine Glucose (UA) (Negative) Urine Ketones (Negative) Urine Blood (Negative) Urine Nitrite (Negative) Urine Bilirubin (Negative) Urine Urobilinogen (Negative) Ur Leukocyte Esterase (Negative) SARS-CoV-2, RNA, NAAT (NEGATIVE) 08/18/21 Range/Units 14:05 WBC (4.8-10.8) K/uL RBC (4.7-6.1) M/uL Hgb (14.0-18.0) g/dL Hct (42-52) % MCV (80-100) fL MCH (25-34) pg MCHC (32-36) g/dL RDW Std Deviation (36.4-46.3) fL RDW Coeff of Kassidy (11.5-14.5) % Plt Count (130-400) K/uL MPV (7.4-10.4) fL Immature Gran % (Auto) % Neut % (Auto) % Lymph % (Auto) % [place] % (Auto) % Eos % (Auto) % Baso % (Auto) % Neut # (Auto) (1.4-6.5) K/uL Lymph # (Auto) (1.2-3.4) K/uL [place] # (Auto) (0.11-0.59) K/uL Eos # (Auto) (0-0.5) K/uL Baso # (Auto) (0-0.2) K/uL Immature Gran # (Auto) (0.00-0.02) K/uL Sodium (136-145) mmol/L Potassium (3.5-5.1) mmol/L Chloride (98-107) mmol/L Carbon Dioxide (21-32) mmol/L Anion Gap (3-11) BUN (6-23) mg/dl Creatinine (0.6-1.4) mg/dl Est Cr Clr Drug Dosing ml/min Est GFR ( Amer) ml/min Est GFR (Non-Af Amer) ml/min BUN/Creatinine Ratio (10-20) Glucose (70-99(Fasting)) mg/dl Calcium (8.5-10.1) mg/dl Magnesium (1.7-2.4) mg/dl Total Bilirubin (0.2-1.0) mg/dl AST (13-39) U/L ALT (7-52) U/L Alkaline Phosphatase (34-104) U/L Troponin I High Sens (0-20) pg/ml Total Protein (6.0-8.3) gm/dl Albumin (3.4-5.0) gm/dl Globulin (2.5-4.0) gm/dl Albumin/Globulin Ratio (0.9-2) TSH (0.300-4.500) uIu/ml Urine Color Urine Appearance (Clear) Urine pH (4.5-7.5) Ur Specific [place] (1.000-1.030) Urine Protein (Negative) Urine Glucose (UA) (Negative) Urine Ketones (Negative) Urine Blood (Negative) Urine Nitrite (Negative) Urine Bilirubin (Negative) Urine Urobilinogen (Negative) Ur Leukocyte Esterase (Negative) SARS-CoV-2, RNA, NAAT NEGATIVE (NEGATIVE) PG Care Time/CCT Total # of Minutes Spent Total Time Spent with Patient: Total time spent is greater than 50% in coordination of care (as documented) at patient's floor/unit and/or counseling patient: [place] [address] Subseq Hosp Care Lvl 2 Patient Type Established Diagnoses Atrial fibrillation with RVR I48.91 Depression F32.A Anxiety F41.9 SIMONE on CPAP G47.33; Z99.89 Knee pain M25.569
--- NOTE | 2021-08-19 14:49 | XCELERA ---
[id number]
[2021-08-19] MEDS: DOXEPIN HCL 75 MG CAPSULE PO SCH (20:43)
[2021-08-20 08:00] LABS: Hematocrit (blood only) 44.7 % (42-52); Hemoglobin 14.7 g/dL (14.0-18.0); Mean Corpuscular Hemoglobin 27.7 pg (25-34); Mean Corpuscular Hgb Conc 32.9 g/dL (32-36); Mean Corpuscular Volume 84.2 fL (80-100); Mean Platelet Volume 10.9 fL (7.4-10.4); Platelet Count 199 K/uL (130-400); RDW Coefficient of Variation 13.7 % (11.5-14.5); RDW Standard Deviation 41.9 fL (36.4-46.3); Red Blood Count 5.31 M/uL (4.7-6.1); White Blood Count 8.14 K/uL (4.8-10.8)
[2021-08-20] MEDS: busPIRone 5 MG TAB PO SCH (08:02)
[2021-08-20] MEDS ORDERED: dilTIAZem HCL 180 MG CAPCR PO SCH (09:00)
[2021-08-20 09:03] LABS: Anion Gap 6 (3-11); BUN Creatinine Ratio 16.7 (10-20); Blood Urea Nitrogen 17 mg/dl (6-23); Carbon Dioxide 26 mmol/L (21-32); Chloride 106 mmol/L (98-107); Creatinine Clr Calc Pharmacy 106.6 ml/min; Est GFR (African American) 95.5 ml/min; Est GFR (Non-African American) 82.4 ml/min; Glucose 94 mg/dl (70-99(Fasting)); Magnesium 1.9 mg/dl (1.7-2.4); Sodium 138 mmol/L (136-145)
--- NOTE | 2021-08-20 09:59 | Cardiology Progress Note ---
Date of Service August 20, 2021 Assessment & Plan (1) Atrial fibrillation with rapid ventricular response: Plan: 1. Atrial fibrillation: He presented in atrial fibrillation, he has never noticed this rhythm before and it lasted for less than 24 hours based on symptoms. The heart rate was fast enough that I would send him home on something for rate control, I started him ondiltiazem 180 mg daily but his first dose is today since he was in sinus rhythm yesterday and had received beta- blockers. I do not believe he should be on anticoagulation given the short duration of the arrhythmia as well as his low [id number] score. I would not recommend any further testing at this time. Admission and Anticipated Discharge Date Admission Date: August 18, 2021 Subjective Patient without complaints today. Physical Exam Physical Exam: Constitutional: Alert, cooperative and in no distress. HEENT: Unremarkable Neck: No jugular venous distention, carotid pulses are normal and equal bilaterally without bruits. Pulmonary: Clear to auscultation bilaterally. Cardiac: Regular rhythm with no murmur, gallop or rub. Abdomen: Soft, nontender with normal bowel sounds. Extremities: No edema. Distal pulses intact. Neurologic: No focal findings. Gait is steady. Skin: No rash, ecchymoses or petechiae. Results & Data ([facility]) Vital Signs (Past 12 Hours) Vital Signs Temp Pulse Pulse Resp BP Pulse Ox 08/20/21 08:00 36.5 C 93 H 129/82 96 08/20/21 03:38 36.5 C 54 L 16 124/80 99 08/19/21 22:35 36.7 C 59 L 18 106/67 97 08/19/21 22:10 64 Laboratory Results CBC 08/20/21 Range/Units 07:30 WBC 8.14 (4.8-10.8) K/uL RBC 5.31 (4.7-6.1) M/uL Hgb 14.7 (14.0-18.0) g/dL Hct 44.7 (42-52) % Plt Count 199 (130-400) K/uL Comprehensive Metabolic Panel 08/20/21 08/20/21 Range/Units 07:30 09:12 Sodium 138 (136-145) mmol/L Potassium TNP 3.7 Chloride 106 (98-107) mmol/L Carbon Dioxide 26 (21-32) mmol/L BUN 17 (6-23) mg/dl Creatinine 1.02 (0.6-1.4) mg/dl Glucose 94 (70-99(Fasting)) mg/dl Calcium 9.0 (8.5-10.1) mg/dl Intake and Output 08/19/21 08/20/21 08/20/21 22:59 06:59 14:59 Other: # Unmeasured Voids 1 1 Weight 110.5 kg Weight Measurement Method Built in [facility] Diagnostic Findings The official reading of his echocardiogram from August 19, 2021 confirms normal left ventricular systolic function with no wall motion abnormalities and no significant valvular abnormalities. Telemetry: No further atrial fibrillation, heart rate appropriate. PG Care Time/CCT Total # of Minutes Spent Total Time Spent with Patient: Total time spent is greater than 50% in coordination of care (as documented) at patient's floor/unit and/or counseling patient: Coding Level of Care Code 66811 Subseq Hosp Care Lvl 2 Diagnoses Atrial fibrillation with rapid ventricular response I48.91
--- NOTE | 2021-08-20 15:02 | Discharge Summary ---
Date of Service August 20, 2021 Admission HPI Per Admitting Provider Joni Armendariz is a 56-year-old male with a past medical history significant for depression and anxiety, as well as sleep apnea who presents today with increased heart rate. Patient has been in his normal state of health, without complaints until this afternoon. He was laying on his left side in bed and felt a temporary heart flutter. He rolled onto this other side and this resolved and he remained asymptomatic. Then around 1:30 this afternoon, he attended a cardio class at the alf, before starting exercise the exercise bike was reading his heart rate of 150. Thinking this was an error, he got on another bike which gave him the same reading. Due to this, he is presenting today for further evaluation. Patient has not had any fever/chills lately shortness of breath, cough, chest pain, chest tightness, or palpitations in the line experienced very briefly early this afternoon In ED, initially presented with a heart rate in the 150s, was found to be in A. fib. Hypertensive with SBP 140s, otherwise vital signs within normal limits. Labs unremarkable. CXR unremarkable. Principal Diagnosis Paroxysmal afib with RVR Discharge Exam Constitutional WD/WN, vitals as above Eyes EOM intact bilaterally; no conjunctival abnormality ENMT external ear and nose normal, oropharynx normal Neck trachea midline, no thyromegaly normal visual inspection Respiratory normal respiratory effort, lungs clear to auscultation no respiratory distress Cardiovascular RRR, no murmur, no edema Gastrointestinal (Abdomen) Inspection/Auscultation: abdomen normal to inspection; abdomen not distended Musculoskeletal no cyanosis or clubbing, extremities motor strength 5/5 Skin no rashes, warm and dry Neurologic moves all extremities and awake Psychiatric Orientation: alert, oriented to person and cooperative Discharge Data Allergies Allergy/AdvReac Type Severity Reaction Status Date / Time No Known Allergies Allergy Verified 08/18/21 20:11 Consultations 08/18/21 17:08 ED Decision to Admit Stat 08/18/21 19:03 Consult Cardiology Routine Hospital Course (1) Atrial fibrillation with RVR: - No history of A. fib or other arrhythmia, with patient's first symptoms (palpitations) this afternoon. - Unknown cause. Past medical history significant for SIMONE, otherwise no pulmonary or cardiac disease. TSH limits. No electrolyte abnormalities. No evidence of infection. No new medications or iwsk-ezc-cahvxqj supplements. - [id number]-[id number] score: 0. Patient denies a history of GI or intracranial bleeds, or known coagulopathies. Given very low CVA risk (< 0.2% per year) will hold off on anticoagulation for tonight and defer decision to cardiology. - Self-converted on 08/19 at 900 with no recurrence of afib. - Echo ordered: EF normal; no valvular issues. - Diltiazem drip transition to oral diltiazem on discharge. F/u with cardiology in 2-3 weeks. (2) Depression: - Continue doxepin 75 mg at night. (3) Anxiety: - Continue BuSpar 25 mg twice daily. (4) SIMONE on CPAP: - Continue CPAP at night. (5) Knee pain: - Chronic. - Continue Voltaren 50 mg twice daily as needed, as well as capsaicin cream 3 times daily as needed. - Admit to PCU. - SCDs for VTE ppx. - Full code. Total Time Total Time Spent Total Time Spent (In Minutes): 35 Discharge Plan Discharge Items [facility]position[facility] Reason For Visit: A.FIB RVR Discharge Diagnosis: Atrial fibrillation with rapid heart rate Condition on Discharge: Good Activity: Resume your previous activity Non-emergency contact: Primary Care Provider and Pasteurizing Supervisor Call non-emergency contact if: your symptoms worsen Follow-up/Referrals: Olaf Carlson MD [Physician] - (Please see Dr. Carlson in 2-3 weeks.) [facility] [Primary Care Provider] - Diet: Heart Healthy Addtl Attending Provider Instructions: Mr. Armendariz had afib with RVR. Diltiazem brought his heart rate down, and he converted back to sinus on 08/19 at 900. Has been in sinus since then. Echo was normal with EF 60-65%. He was started on oral diltiazem by the motor boss and can continue this. His CHADs-VASC is 0, so he does not need anticoagulation. Pending Studies at Discharge: No Stand-Alone Forms: My [facility] Prescribe Wellness Skilled Items Patient informed of condition?: Yes Discharge Level of Care: Other Communicable Disease: No Discharge Prognosis: Stable Lines: None Urinary Catheter: No Medications and DC Order Prescriptions: New diltiazem HCl 180 mg capsule,extended release 24 hr 180 mg PO DAILY Qty: 1 RF: 0 Continued doxepin 75 mg Capsule 75 mg PO HS RF: 0 capsaicin 0.075 % Cream 1 applic TOPICAL BID RF: 0 buspirone 10 mg Tablet 10 mg PO BID RF: 0 diclofenac sodium 50 mg Tablet,Delayed Release (Dr/Ec) 50 mg PO Q12H PRN (Reason: Pain) RF: 0 buspirone 15 mg Tablet 15 mg PO BID RF: 0 Discharge Orders: Discharge Order (Routine); Ordered 08/20/21 Ordered By: Valentín Green Admission Data Admit Date/Time: 08/18/21 17:42 Attending Provider: Valentín Green Admit Provider: Valentín Green Primary Care Provider: Ethel WIGGINS Other Providers: Valentín Green ; Olaf Carlson Other Interventions: Discharge Summary Assessment (RN) Last Done: 08/20/21 10:52 Coding Level of Care Code D/C DAY MANAGEMENT >30 MINS Diagnoses Atrial fibrillation with RVR I48.91 Depression F32.A Anxiety F41.9 SIMONE on CPAP G47.33; Z99.89 Knee pain M25.569
== END 2021-08-20 12:05 | DRG 310 ==
LOC: ED 15:07 → 2S 17:42